=== PATIENT | male | born 1940 | race Caucasian/White ===

== ENCOUNTER 2025-06-22 12:13 | Day surgery (SDC) | payer OTHER ==
[~2025-06-22] VITALS: Ht 182.9 cm; Wt 72.5 kg
[~2025-06-22 12:13] MED LIST: ALB0.5UD IH; AMLO5TAB4 PO; FLUT1AER INH; HYDR25TA5 PO; LISI20TA28 PO
[2025-06-22] MEDS ORDERED: ceFAZolin 2gm/dext,iso 50mL 50 ML IV ONE (12:55)
[2025-06-22] MEDS ORDERED: normal saline 1000ml 1,000 ML IV SCH (12:55)
--- NOTE | 2025-06-22 13:30 | ELECTROCARDIOGRAPH REPORT ---
[facility] Test Date: 2025-06-22 Test Time: 13:25:05 Pat Name: NAHOMY MALE Department: [facility] Patient ID: [id number] Room: Gender: M Biological Technician: MICHELET : 1940 Requested By: USHA SAMANO Order Number: [id number] Reading MD: Dr. IAN Echavarria Measurements Intervals [place] Rate: 45 P: 68 AL: 232 QRS: 269 QRSD: 103 T: 59 QT: 505 QTc: 437 Interpretive Statements Sinus bradycardia Prolonged AL interval S1,S2,S3 pattern Anteroseptal infarct, old Electronically Signed On 06-23-2025 19:16:[address] IAN Echavarria Please click the below link to view image of tracing.
[2025-06-22] MEDS ORDERED: UBID100C16 PO (13:37)
[2025-06-22] MEDS ORDERED: ALBU8HFA PO (13:37)
[2025-06-22] MEDS ORDERED: ASPI-611 PO (13:37)
[2025-06-22] MEDS ORDERED: ATOR20TA66 PO (13:37)
[2025-06-22] MEDS ORDERED: MULT-1085 PO (13:37)
[2025-06-22] MEDS ORDERED: AMLO5TAB PO (13:37)
[2025-06-22 13:39] VITALS: BP 140/64; PULSE 50; RESP 16; TEMP 98.7; O2SAT 96
[2025-06-22 14:17] LABS: MEAN PLATELET VOLUME 7.1 FL (7.4-10.4); RED CELL DISTRIBUTION WIDTH 14.7 % (11.5-14.5)
[2025-06-22 14:23] VITALS: RESP 16; O2SAT 96
[2025-06-22 14:25] LABS: CREATININE 1.24 MG/DL (0.60-1.10); TOTAL CARBON DIOXIDE 27.1 MMOL/L (24-32); eCRCL 47 ML/MIN; eGFR 56 ML/MIN
[2025-06-22 14:48] LABS: APTT 27 SECONDS (22-32); INR 1.1 INR
[2025-06-22] MEDS ORDERED: fentaNYL/PF 50MCG/1 ML 2ML syringe ONE ×2 (14:51→16:01)
[2025-06-22] MEDS ORDERED: midazolam 1 mg/ML 2ml injection ONE ×3 (14:51→16:01)
[2025-06-22] MEDS ORDERED: LIDOcaine 1% W/epiNEPHrine 1:100,000 20ml vial ONE (14:51)
[2025-06-22] MEDS ORDERED: iohexol 350 MG/ML 50ML vial IV ONE (15:33)
[2025-06-22] MEDS ORDERED: HYDROcodone/acetaminophen 5mg/325mg tablet PO PRN (17:15)
[2025-06-22] MEDS ORDERED: HYDROcodone/acetaminophen 10/325mg tab PO PRN (17:15)
[2025-06-23] MEDS ORDERED: ceFAZolin/D5W- 1GM premix 50 ML IV SCH
--- NOTE | 2025-07-25 18:28 | GI LAB REPORT ---
DATE OF PROCEDURE: 06/22/2025 DICTATING PHYSICIAN: Katerine Elizabeth MD DATE OF PROCEDURE: 06/22/2025. NAME OF PROCEDURE: Implantation of dual-chamber permanent pacemaker. INDICATIONS: * Sick sinus syndrome. * Syncope. PHYSICIAN: Katerine Elizabeth MD DESCRIPTION OF PROCEDURE: After informed consent was obtained, the patient was brought to the lab where he was prepped and draped in the usual sterile fashion. After adequate anesthesia to the left subclavicular region, access to the left subclavian vein was obtained twice. Thereafter, a 3-5 cm incision, approximately one fingerbreadth below the left clavicle was made. Using blunt dissection, the pocket was created. Both J-wires were tunneled out into the pocket. Thereafter, a 7-Angolan sheath was inserted over the J-wire. The wire and dilator were removed. The right ventricular lead was advanced into the right ventricular apex, where required thresholds were obtained. This was then secured with silk sutures. Next, the second 7-Angolan sheath was inserted over the J-wire and the dilator and wire removed. The atrial lead was advanced into the right atrial appendage where required thresholds were obtained. This was also secured with 3-0 silk. Both leads were then connected to the generator. The pocket was copiously irrigated. The pacemaker was inserted into the pocket and closed with 4-0 Vicryl and the subcuticular tissue with 4-0 Monocryl. Steri-Strips were applied. The patient tolerated the procedure well. IMPRESSION: Successful implantation of a dual-chamber [employer] permanent pacemaker without complication. Katerine Elizabeth MD TID: [id number] RECEIPT: [id number] DINO/SHANNON
== END 2025-06-22 18:00 | disposition home or self-care (01) ==
LOC: SSTAY O 12:13
PROVIDERS: ATTEND Student in an Organized Health Care Education/Training Program
DX: I49.5 Sick sinus syndrome (principal); I25.2 Old myocardial infarction; R94.31 Abnormal electrocardiogram [ECG] [EKG]; I44.30 Unspecified atrioventricular block; I10 Essential (primary) hypertension; J44.9 Chronic obstructive pulmonary disease, unspecified; M19.90 Unspecified osteoarthritis, unspecified site; Z79.899 Other long term (current) drug therapy
CPT/HCPCS: 33208; 36415; 80048; 85025; 85610; 85730; 93005; 99152; 99153; C1785; C1898; J0690; J2250; J3010; J3490; J7030; A4565; Q9967